=== PATIENT | female | born 1960 | race American Indian/Alaskan Native ===

== ENCOUNTER 2018-07-03 14:48 | Emergency (ER) | payer SELFPAY ==
--- NOTE | 2018-07-03 15:57 | Emergency Department Report ---
ED Lower Extremity HPI - General Chief Complaint: Extremity Problem,Nontraumatic Stated Complaint: RT LEG/LOWER LEG LEAKING Time Seen by Provider: 07/03/18 15:50 Source: patient Mode of arrival: Ambulatory Limitations: No Limitations - History of Present Illness Initial Comments: Patient is a 58-year-old -[place] female who comes to the ER complaining of a wound on her right lower extremity that is now draining yellow discharge. She states that she has had this wound off and on for some years, and that she's had a DVT in the past in the extremity but it has never we'd like it is at the current time. Patient is ambulatory but having difficulty walking on the leg. Patient is obese. She is no longer on blood thinners after the DVT she states her doctor took her off and placed on aspirin. -: Gradual, week(s) Place: home Severity: moderate - Related Data Previous Rx's Medication Instructions Recorded Last Taken Type Silver Sulfadiazine [Ssd] 400 gm TP BID #1 cream..g. 07/03/18 Unknown Rx cephALEXin [Keflex] 500 mg PO Q12HR #20 cap 07/03/18 Unknown Rx Allergies Allergy/AdvReac Type Severity Reaction Status Date / Time codeine AdvReac Vomiting Verified 07/03/18 15:00 hydrocodone AdvReac Vomiting Verified 07/03/18 15:01 lisinopril AdvReac Unknown Verified 07/03/18 15:01 ED Review of Systems ROS: Stated complaint: RT LEG/LOWER LEG LEAKING Other details as noted in HPI Comment: All other systems reviewed and negative Constitutional: denies: chills, fever Eyes: denies: eye pain ENT: denies: throat pain Respiratory: denies: cough Cardiovascular: denies: dyspnea on exertion Endocrine: denies: flushing Gastrointestinal: denies: abdominal pain Genitourinary: denies: urgency Musculoskeletal: denies: back pain Skin: lesions Neurological: denies: headache Psychiatric: denies: depression Hematological/Lymphatic: denies: easy bleeding ED Past Medical Hx - Past Medical History Hx Hypertension: Yes Additional medical history: Hx of A fib; HX DVT IN PAST WAS ON PRADAXA- NOW ON ASA PER HER MD INSTRUCTIONS. SHE HAS HAD PERICARDECTOMY BY DR KERR AT [facility] IN PAST; PVD - Surgical History Past Surgical History?: Yes Additional Surgical History: Pericardectomy - Social History Smoking Status: Never Smoker Substance Use Type: None - Medications Home Medications: Home Medications Medication Instructions Recorded Confirmed Last Taken Type Silver Sulfadiazine [Ssd] 400 gm TP BID #1 cream..g. 07/03/18 Unknown Rx cephALEXin [Keflex] 500 mg PO Q12HR #20 cap 07/03/18 Unknown Rx ED Physical Exam - General Limitations: No Limitations General appearance: alert - Head Head exam: Present: atraumatic, normocephalic - Eye Eye exam: Present: normal appearance, PERRL, EOMI Pupils: Present: normal accommodation - ENT ENT exam: Present: normal exam, mucous membranes moist - Neck Neck exam: Present: normal inspection - Cardiovascular Cardiovascular Exam: Present: regular rate - GI/Abdominal GI/Abdominal exam: Present: soft - Expanded Lower Extremity Exam Right Lower Leg exam: Present: tenderness, swelling, erythema. Absent: abrasion, laceration, ecchymosis, deformity, crepidus, dislocation, palpable cord, Quinten's sign - Back Exam Back exam: Present: normal inspection, full ROM - Neurological Exam Neurological exam: Present: alert, oriented X3 - Psychiatric Psychiatric exam: Present: normal affect, normal mood - Skin Skin exam: Present: warm, dry, normal color ED Course Vital Signs 07/03/18 07/03/18 14:57 18:55 Temperature 98.4 F 99 F Pulse Rate 72 79 Respiratory 18 16 Rate Blood Pressure 191/97 Blood Pressure 148/79 [Right] O2 Sat by Pulse 100 97 Oximetry - Reevaluation(s) Reevaluation #1: 07/03/18 17:56 HOME MEDS LASIX ASA METOPROLOL ED Lower Extremity MDM - Lab Data Result diagrams: 07/03/18 16:03 07/03/18 16:03 - Radiology Data Radiology results: report reviewed, image reviewed - Medical Decision Making Labs 07/03/18 07/03/18 07/03/18 16:03 16:03 16:03 WBC 2.9 L RBC 4.40 Hgb 12.9 Hct 38.1 MCV 87 MCH 29 MCHC 34 RDW 14.2 Plt Count 163 PT 13.6 INR 1.00 APTT 27.8 Sodium 141 Potassium 4.5 Chloride 103.8 Carbon Dioxide 28 Anion Gap 14 BUN 14 Creatinine 0.6 L Estimated GFR > 60 BUN/Creatinine Ratio 23 Glucose 96 Calcium 8.8 Total Bilirubin 0.30 AST 19 ALT 19 Alkaline Phosphatase 101 Total Protein 6.6 Albumin 4.1 Albumin/Globulin Ratio 1.6 - Differential Diagnosis RO DVT; CELLULITIS Critical care attestation.: If time is entered above; I have spent that time in minutes in the direct care of this critically ill patient, excluding procedure time. ED Disposition Clinical Impression: PVD (peripheral vascular disease), Cellulitis Disposition: DC- TO HOME OR SELFCARE Is pt being admited?: No Does the pt Need Aspirin: No Condition: Stable Instructions: Cellulitis (ED), Peripheral Vascular Disorders (ED) Additional Instructions: CONTINUE HOME MEDS CHANGE THE WOUND DRESSINGS TWICE PER DAY APPLY THICK LAYER OF SSD AND GUAZE AND WILLI KEEP ELEVATED MOTRIN OR TYLENOL FOR PAIN MEDS ORDERED TODAY FOLLOW UP WITH WOUND CLINIC INSTRUCTED REFERRAL BELOW FOLLOW UP WITH PCP REFERRAL BELOW Prescriptions: cephALEXin [Keflex] 500 mg PO Q12HR #20 cap Silver Sulfadiazine [Ssd] 400 gm TP BID #1 cream..g. Referrals: PRIMARY CARE, [Primary Care Provider] - 3-5 Days [facility] [Outside] - 3-5 Days [facility] [Outside] - 3-5 Days Time of Disposition: 17:48
[2018-07-03 16:11] LABS: Hematocrit 38.1 % (30.3-42.9); Hemoglobin 12.9 gm/dl (10.1-14.3); Mean Corpuscular HGB Conc 34 % (30-34); Mean Corpuscular Volume 87 fl (79-97); Platelet Count 163 K/mm3 (140-440); Red Cell Distribution Width 14.2 % (13.2-15.2)
[2018-07-03 16:22] LABS: Partial Thromboplastin Time 27.8 Sec. (24.2-36.6)
[2018-07-03] MEDS ORDERED: THERMAZENE 50 GRAM TP ONE (16:25)
[2018-07-03 16:30] LABS: Alanine Aminotransferase 19 units/L (7-56); Albumin 4.1 g/dL (3.9-5); BUN/Creatinine Ratio 23; Blood Urea Nitrogen 14 mg/dL (7-17); Calcium 8.8 mg/dL (8.4-10.2); Hemolysis Index 6
[2018-07-03] MEDS ORDERED: ULTRAM PO ONE (17:17)
[2018-07-03] MEDS ORDERED: KEFLEX PO ONE (17:17)
[2018-07-03 18:56] VITALS: BP 148/79
--- NOTE | 2018-07-03 19:27 | Vascular Lab Report ---
FINAL REPORT EXAM: VL VENOUS DUPLEX LE RT HISTORY: pain rle TECHNIQUE: Ultrasound deep venous system of right lower extremity with pulsed and color Doppler eval uation PRIORS: None. FINDINGS: There some limitations due to body habitus. Within the limits of the study there is normal sonographi c appearance of the deep venous system from the common femoral to the visualized proximal calf veins. There is normal compressibility. On pulsed and color Doppler evaluation there is normal vascular flow and venous waveforms. IMPRESSION: Negative. No evidence of deep venous thrombosis
== END 2018-07-03 18:55 | disposition home or self-care (01) ==
LOC: ED 14:48
DX: I73.9 Peripheral vascular disease, unspecified (principal); L03.115 Cellulitis of right lower limb; I10 Essential (primary) hypertension; Z86.718 Personal history of other venous thrombosis and embolism; I48.91 Unspecified atrial fibrillation; Z88.4 Allergy status to anesthetic agent; Z88.6 Allergy status to analgesic agent
CPT/HCPCS: 36415; 80053; 85027; 85610; 85730

== ENCOUNTER 2021-04-21 18:12 | Emergency (ER) | payer OTHER ==
[2021-04-21 20:03] VITALS: BP 174/99
[2021-04-21] MEDS ORDERED: cephALEXin 500 MG CAP PO ONE (20:28)
[2021-04-21] MEDS ORDERED: ACETAMINOPHEN 500 MG TAB PO ONE (20:28)
--- NOTE | 2021-04-21 20:34 | Emergency Department Report ---
ED Extremity Problem HPI - General Chief complaint: Extremity Injury, Lower Stated complaint: WOUND BURNING FEELING THRU LEG Time Seen by Provider: 04/21/21 20:27 Source: patient Mode of arrival: Ambulatory Limitations: No Limitations - History of Present Illness Initial comments: Patient 61-year-old female with a history of atrial flutter with RVR, hype rtension, obesity, and recurrent stasis ulcer of the right lower extremity. Patient presents for stasis ulcer to the right 1 cm to right medial lower leg. States she has appointment in 1 week was advised to get a prescription for Silvadene and antibiotics which is her normal treatment for same for outbreaks. Patient denies shortness of breath there is no chest pain there is no nausea there is no vomiting there is no dizziness. Patient current treatment regimen is metoprolol, diltiazem, Xarelto, and Lasix patient states she is not taking her p.m. dose of metoprolol however she does have medications in her possession at this time. Patient denies lightheadedness there is no PND no decrease in ambulation no cough no fever no chills. Patient declines x-rays or labs at this time. States she just 1 ointment and antibiotics. Patient does have good follow-up with primary MD Dr. Main in 2 days. MD Complaint: extremity pain - Related Data Previous Rx's Medication Instructions Recorded Last Taken Type Silver Sulfadiazine [Ssd] 400 gm TP BID #1 cream..g. 07/03/18 Unknown Rx cephALEXin [Keflex] 500 mg PO Q12HR #20 cap 07/03/18 Unknown Rx Gauze Bandage 1 each TP BID #25 bandage 04/21/21 Unknown Rx Gauze Bandage [Band-Aid Mirasorb 1 each TP BID #100 sponge 04/21/21 Unknown Rx Gauze Sponge] SILVER sulfADIAZINE 50 GRAM 1 applicatio TP BID #1 tube 04/21/21 Unknown Rx [Thermazene 50 Gram] cephALEXin [Keflex] 500 mg PO Q8HR 7 Days #21 cap 04/21/21 Unknown Rx Allergies Allergy/AdvReac Type Severity Reaction Status Date / Time codeine AdvReac Vomiting Verified 07/03/18 15:00 hydrocodone AdvReac Vomiting Verified 07/03/18 15:01 lisinopril AdvReac Unknown Verified 07/03/18 15:01 ED Review of Systems ROS: Stated complaint: WOUND BURNING FEELING THRU LEG Other details as noted in HPI Constitutional: denies: chills, fever Eyes: denies: eye pain, eye discharge, vision change ENT: denies: ear pain, throat pain Respiratory: denies: cough, shortness of breath, wheezing Cardiovascular: denies: chest pain, palpitations Endocrine: no symptoms reported Gastrointestinal: denies: abdominal pain, nausea, diarrhea Genitourinary: denies: urgency, dysuria, discharge Musculoskeletal: denies: back pain, joint swelling, arthralgia Skin: other (1x2 stasis ulcer right inner leg ). denies: rash Neurological: denies: headache, weakness, paresthesias Psychiatric: denies: anxiety, depression Hematological/Lymphatic: denies: easy bleeding, easy bruising ED Past Medical Hx - Past Medical History Hx Hypertension: Yes Additional medical history: Hx of A fib; HX DVT IN PAST WAS ON PRADAXA- NOW ON ASA PER HER MD INSTRUCTIONS. SHE HAS HAD PERICARDECTOMY BY DR KERR AT [place] IN PAST; PVD - Surgical History Additional Surgical History: Pericardectomy - Social History Smoking Status: Never Smoker Substance Use Type: None - Medications Home Medications: Home Medications Medication Instructions Recorded Confirmed Last Taken Type Silver Sulfadiazine [Ssd] 400 gm TP BID #1 cream..g. 07/03/18 Unknown Rx cephALEXin [Keflex] 500 mg PO Q12HR #20 cap 07/03/18 Unknown Rx Gauze Bandage 1 each TP BID #25 bandage 04/21/21 Unknown Rx Gauze Bandage [Band-Aid Mirasorb 1 each TP BID #100 sponge 04/21/21 Unknown Rx Gauze Sponge] SILVER sulfADIAZINE 50 GRAM 1 applicatio TP BID #1 tube 04/21/21 Unknown Rx [Thermazene 50 Gram] cephALEXin [Keflex] 500 mg PO Q8HR 7 Days #21 cap 04/21/21 Unknown Rx ED Physical Exam - General Limitations: No Limitations General appearance: alert, in no apparent distress - Head Head exam: Present: atraumatic, normocephalic - Eye Eye exam: Present: normal appearance, EOMI Pupils: Present: normal accommodation - ENT ENT exam: Present: normal exam - Neck Neck exam: Present: normal inspection, tenderness, full ROM - Respiratory Respiratory exam: Present: normal lung sounds bilaterally. Absent: respiratory distress, wheezes, rales, rhonchi, stridor - Cardiovascular Cardiovascular Exam: Present: regular rate, normal rhythm, normal heart sounds. Absent: systolic murmur, diastolic murmur, rubs, gallop - GI/Abdominal GI/Abdominal exam: Present: soft, normal bowel sounds. Absent: distended, tenderness - Rectal Rectal exam: Present: deferred - Extremities Exam Extremities exam: Present: normal inspection, full ROM, normal capillary refill. Absent: pedal edema - Expanded Lower Extremity Exam Right Lower Leg exam: Present: full ROM, tenderness (1x2 stasis ulcer no drainage no fever no crepitus noted firm escare black , ). Absent: ecchymosis, deformity, crepidus, erythema, palpable cord, Quinten's sign Ankle exam: Present: full ROM. Absent: tenderness, swelling Foot/Toe exam: Present: full ROM. Absent: tenderness, swelling Neuro vascular tendon exam: Absent: pulse deficit, motor deficit, sensory deficit, tendon deficit, foot drop Gait: Positive: observed and normal - Back Exam Back exam: Present: normal inspection, full ROM. Absent: CVA tenderness (R), CVA tenderness (L), rash noted - Neurological Exam Neurological exam: Present: alert, oriented X3, CN II-XII intact, normal gait - Psychiatric Psychiatric exam: Present: normal affect, normal mood - Skin Skin exam: Present: warm, dry, normal color, other (stasis ulcer as above ). Absent: rash ED Course Vital Signs 04/21/21 04/21/21 20:02 20:03 Temperature 98.8 F Pulse Rate 110 H Blood Pressure 174/99 O2 Sat by Pulse 98 Oximetry ED Medical Decision Making - Medical Decision Making stasis ulcer R LE , plan: keflex, silverdeene as previously rx, follow up with Dr Main in 2 days as scheduled, return to ed if symptoms worsen. pt verbalized agreement and understanding of same. pt vital signs noted as improved. Critical care attestation.: If time is entered above; I have spent that time in minutes in the direct care of this critically ill patient, excluding procedure time. ED Disposition Clinical Impression: Cellulitis of right lower leg Stasis ulcer of lower extremity Qualifiers: Laterality: right Qualified Code(s): I83.019 - Varicose veins of right lower extremity with ulcer of unspecified site; L97.919 - Non-pressure chronic ulcer of unspecified part of right lower leg with unspecified severity Disposition: 01 HOME / SELF CARE / HOMELESS Is pt being admited?: No Does the pt Need Aspirin: No Condition: Stable Instructions: Cellulitis, Adult, Cellulitis, Adult, [id number], Venous Ulcer, [id number] Additional Instructions: Take all antibiotics as prescribed, take your blood pressure medications as soon as you arrive to home tonight. Dressing changes twice a day as previously prescribed and directed. Follow-up with primary care doctor in 2 days as scheduled. Return to emergency department if symptoms worsen. Prescriptions: Gauze Bandage [Band-Aid Mirasorb Gauze Sponge] 1 each TP BID #100 sponge Gauze Bandage 1 each TP BID #25 bandage cephALEXin [Keflex] 500 mg PO Q8HR 7 Days #21 cap SILVER sulfADIAZINE 50 GRAM [Thermazene 50 Gram] 1 applicatio TP BID #1 tube Referrals: RADHA CRUZ MD [Referring] - 3-5 Days Forms: Work/School Release Form(ED) Time of Disposition: 20:48
== END 2021-04-22 04:57 | disposition home or self-care (01) ==
LOC: ED 18:12
DX: I83.018 Varicose veins of right lower extremity with ulcer other part of lower leg (principal); L97.819 Non-pressure chronic ulcer of other part of right lower leg with unspecified severity; L03.115 Cellulitis of right lower limb; I10 Essential (primary) hypertension; Z79.899 Other long term (current) drug therapy; Z88.5 Allergy status to narcotic agent; Z88.8 Allergy status to other drugs, medicaments and biological substances
CPT/HCPCS: 99282